=== PATIENT | male | born 1975 | race Caucasian/White ===

== ENCOUNTER 2019-09-08 05:30 | Inpatient (IN) | payer BC ==
[~2019-09-08] VITALS: Ht 177.8 cm; Wt 129.8 kg
[~2019-09-08 05:30] MED LIST: ALPR-155 PO; AMIT75TA PO; BACL20TA PO; BUSP30TA PO; CHOL5000 PO; CITA40TA5 PO; GABA300C10 PO; LEVO5TAB29 PO; LISI40TA PO; MONT10TA9 PO; OMEP40CA42 PO; OXYC-432 PO; ROSU20TA2 PO
[2019-09-08] MEDS ORDERED: BACITRACIN 50,000 UNIT ONE (06:15)
[2019-09-08] MEDS ORDERED: EPINEPHRINE 1 MG/ML, 1ML ONE (06:15)
[2019-09-08] MEDS ORDERED: BUPIVACAINE/PF 0.5% ONE (06:15)
[2019-09-08 06:21] VITALS: BP 133/88
[2019-09-08] MEDS ORDERED: THROMBIN 5,000 UNIT VIAL TP ONE (06:21)
[2019-09-08] MEDS ORDERED: MIDAZOLAM 1 MG/ML, 2ML ONE ×2 (06:22→09:06)
[2019-09-08] MEDS ORDERED: FENTANYL PF 250 MCG/5ML ONE (06:22)
[2019-09-08] MEDS ORDERED: LACTATED RINGERS 1,000 ML IV SCH (06:26)
[2019-09-08] MEDS ORDERED: PHENYLEPHRINE 10 MG/ML ONE (06:27)
[2019-09-08] MEDS ORDERED: GABAPENTIN 300 MG CAPSULE PO ONE (06:30)
[2019-09-08] MEDS ORDERED: ACETAMINOPHEN 500 MG TABLET PO ONE (06:30)
[2019-09-08] MEDS ORDERED: PROPOFOL 100 ML ONE (06:33)
[2019-09-08] MEDS ORDERED: ROCURONIUM 10MG/ML,5ML ONE ×2 (06:58→08:01)
[2019-09-08] MEDS ORDERED: NEOSTIGMINE 1 MG/ML, 10ML ONE (06:58)
[2019-09-08] MEDS ORDERED: CEFAZOLIN 1,000 MG ONE (06:58)
[2019-09-08] MEDS ORDERED: GLYCOPYRROLATE 0.2MG/1ML, 5ML ONE (06:58)
[2019-09-08] MEDS ORDERED: PROPOFOL 10 MG/ML, 20ML ONE (06:58)
[2019-09-08] MEDS ORDERED: MEPERIDINE/PF 25MG/ML,1ML IVPush PRN (07:00)
[2019-09-08] MEDS ORDERED: DIAZEPAM 5 MG/ML, 2ML IVPush PRN (07:00)
[2019-09-08] MEDS ORDERED: LABETALOL 5MG/ML, 20ML IV PRN (07:00)
[2019-09-08] MEDS ORDERED: hydrALAzine 20 MG/ML, 1ML IV PRN (07:00)
[2019-09-08] MEDS ORDERED: ONDANSETRON 2MG/ML, 2ML IV PRN (07:00)
[2019-09-08] MEDS ORDERED: OXYcodone 5 MG/5 ML ORAL.SOL UDC PO PRN (07:00)
[2019-09-08] MEDS ORDERED: MORPHINE SULFATE 4 MG/ML, 1ML IVPush PRN (07:00)
[2019-09-08] MEDS ORDERED: HYDROmorphone 2 MG/ML, 1ML IVPush PRN (07:00)
[2019-09-08] MEDS ORDERED: ALBUTEROL HFA 90 MCG/SPRAY ONE (07:40)
[2019-09-08] MEDS ORDERED: FENTANYL PF 100 MCG/2ML ONE ×2 (08:43→09:06)
[2019-09-08] MEDS ORDERED: HYDROcodone/APAP 5/325 TABLET PO PRN (09:00)
[2019-09-08] MEDS ORDERED: PROMETHAZINE 25 MG/ML, 1ML IM PRN (09:00)
[2019-09-08] MEDS: LISINOPRIL 40 MG TABLET PO SCH ×2 (09:00→20:53)
[2019-09-08] MEDS ORDERED: CYCLOBENZAPRINE 10 MG TABLET PO PRN (09:00)
[2019-09-08] MEDS ORDERED: ONDANSETRON 2MG/ML, 2ML IVPush PRN (09:00)
[2019-09-08] MEDS ORDERED: DIPHENHYDRAMINE 50 MG/ML, 1ML IVPush PRN (09:00)
[2019-09-08] MEDS: GABAPENTIN 300 MG CAPSULE PO SCH ×2 (09:00→20:52)
[2019-09-08] MEDS ORDERED: METHOCARBAMOL 750 MG TABLET PO PRN (09:00)
[2019-09-08] MEDS ORDERED: MAGNESIUM HYDROXIDE 8%, 30ML UDC PO PRN (09:00)
[2019-09-08] MEDS ORDERED: PHARMACY MAY ADJ FOR RENAL FX MC PRN (09:00)
[2019-09-08] MEDS ORDERED: SENNA/DOCUSATE TABLET PO PRN (09:00)
[2019-09-08] MEDS: CHOLECALCIFEROL 5,000u TAB PO SCH (09:00)
[2019-09-08] MEDS ORDERED: BACLOFEN 10 MG TABLET PO PRN (09:00)
[2019-09-08] MEDS ORDERED: METHOCARBAMOL 1,000 MG in DEXTROSE 5% 100 ML IV PRN (09:30)
[2019-09-08] MEDS ORDERED: MIDAZOLAM 1 MG/ML, 5ML IVPush PRN (09:30)
[2019-09-08] MEDS ORDERED: ALBUTEROL SULFATE 2.5 MG/3 ML ONE (09:41)
[2019-09-08] MEDS: FENTANYL PF 100 MCG/2ML IV PRN ×2 (09:42→09:50)
[2019-09-08] MEDS ORDERED: OXYcodone 5 MG/5 ML ORAL.SOL UDC ONE (09:52)
[2019-09-08] MEDS ORDERED: ALBUTEROL SULFATE 2.5 MG/3 ML NPPB PRN (10:00)
[2019-09-08] MEDS ORDERED: morphine SULFATE 10 MG/ML, 1ML ONE (10:00)
[2019-09-08 11:00] VITALS: BP 135/94
[2019-09-08] MEDS: D5%-0.9% NACL+KCL 20MEQ 1,000 ML IV SCH ×2 (12:15→21:55)
[2019-09-08] MEDS: HYDROcodone/APAP 10/325 MG TABLET PO PRN ×2 (12:15→16:31)
[2019-09-08] MEDS: BUSPIRONE 10 MG TABLET PO SCH (12:17)
[2019-09-08] MEDS: SODIUM CHLORIDE FLUSH 10ML SYR IVF SCH ×2 (12:17→21:00)
[2019-09-08] MEDS: morphine SULFATE 10 MG/ML, 1ML IVPush PRN ×2 (14:05→20:03)
[2019-09-08 15:10] VITALS: BP 137/90
[2019-09-08] MEDS: CEFAZOLIN PMX 1GM/50ML 50 ML IVPB SCH ×2 (15:19→23:14)
[2019-09-08 19:47] VITALS: BP 106/72
[2019-09-08] MEDS: MONTELUKAST 10 MG TABLET PO SCH (20:52)
[2019-09-08] MEDS: ATORVASTATIN 80 MG TABLET PO SCH (20:52)
[2019-09-08] MEDS: ALPRazolam 1MG TAB PO PRN (20:52)
[2019-09-08] MEDS: AMITRIPTYLINE 75 MG TABLET PO SCH (20:52)
[2019-09-08] MEDS: OXYcodone/APAP 5/325MG TABLET PO PRN (20:55)
[2019-09-08] MEDS: OMEPRAZOLE 20 MG CAPSULE.DR PO SCH (20:59)
[2019-09-08] MEDS: CITALOPRAM 20 MG TABLET PO SCH (20:59)
[2019-09-09 00:49] VITALS: BP 136/96
[2019-09-09] MEDS: OXYcodone/APAP 5/325MG TABLET PO PRN ×4 (00:57→17:14)
[2019-09-09] MEDS: morphine SULFATE 10 MG/ML, 1ML IVPush PRN (01:03)
[2019-09-09 04:29] VITALS: BP 128/89
[2019-09-09] MEDS ORDERED: ENOXAPARIN 40 MG/0.4 ML SQ SCH (06:00)
[2019-09-09 06:17] LABS: MEAN CORPUSCULAR HEMOGLOBIN 31.9 pg (27.5-34.5); MEAN CORPUSCULAR HGB CONC 33.4 g/dL (33.2-36.2); MEAN CORPUSCULAR VOLUME 95.3 fL (81-97); MEAN PLATELET VOLUME 8.4 fL (7.4-10.4); PLATELET COUNT 219 x10^3/uL (130-400); RED BLOOD COUNT 4.78 x10^6/uL (4.38-5.82); RED CELL DISTRIBUTION WIDTH 13.5 % (9.4-14.8)
[2019-09-09 06:26] LABS: ANION GAP 6 mmol/L (5-15); CALCIUM 8.6 mg/dL (8.5-10.1); CHLORIDE 100 mmol/L (98-107); CREATININE 1.11 mg/dL (0.7-1.3)
[2019-09-09] MEDS: D5%-0.9% NACL+KCL 20MEQ 1,000 ML IV SCH ×3 (06:57→20:00)
[2019-09-09 07:18] LABS: BASOPHILS % (AUTO) 1 % (0-1); EOSINOPHILS # (AUTO) 0.15 x10^3/uL (0-0.4); EOSINOPHILS % (AUTO) 1 % (1-7); LYMPHOCYTES # (AUTO) 2.45 x10^3/uL (1-3.4); LYMPHOCYTES % (AUTO) 17 % (22-44); MD SCAN; MONOCYTES # (AUTO) 2.03 x10^3/uL (0.2-0.8); MONOCYTES % (AUTO) 14 % (2-9); NEUTROPHILS # (AUTO) 9.56 x10^3/uL (1.8-6.8); NEUTROPHILS % (AUTO) 67 % (42-75)
[2019-09-09 07:38] VITALS: BP 129/87
[2019-09-09] MEDS: SODIUM CHLORIDE FLUSH 10ML SYR IVF SCH ×2 (09:10→21:00)
[2019-09-09] MEDS: BUSPIRONE 10 MG TABLET PO SCH (09:11)
[2019-09-09] MEDS: LISINOPRIL 40 MG TABLET PO SCH ×2 (09:12→21:25)
[2019-09-09] MEDS: CETIRIZINE 10 MG TABLET PO SCH (09:12)
[2019-09-09] MEDS: GABAPENTIN 300 MG CAPSULE PO SCH ×2 (09:12→21:25)
[2019-09-09] MEDS: CHOLECALCIFEROL 5,000u TAB PO SCH (09:12)
[2019-09-09] MEDS ORDERED: OXYcodone IR 5MG TABLET PO PRN (13:30)
[2019-09-09 15:35] VITALS: BP 102/71
[2019-09-09] MEDS: ENOXAPARIN 30 MG/0.3 ML SQ SCH (16:00)
[2019-09-09 19:23] VITALS: BP 116/77
[2019-09-09] MEDS: AMITRIPTYLINE 75 MG TABLET PO SCH (21:25)
[2019-09-09] MEDS: MONTELUKAST 10 MG TABLET PO SCH (21:25)
[2019-09-09] MEDS: CITALOPRAM 20 MG TABLET PO SCH (21:26)
[2019-09-09] MEDS: OMEPRAZOLE 20 MG CAPSULE.DR PO SCH (21:26)
[2019-09-09] MEDS: ATORVASTATIN 80 MG TABLET PO SCH (21:26)
[2019-09-10] MEDS: ALPRazolam 1MG TAB PO PRN (00:13)
[2019-09-10] MEDS: OXYcodone/APAP 5/325MG TABLET PO PRN ×4 (01:02→20:54)
[2019-09-10 01:40] VITALS: BP 102/54
[2019-09-10 02:00] VITALS: BP 121/75
[2019-09-10] MEDS: ENOXAPARIN 30 MG/0.3 ML SQ SCH (04:00)
[2019-09-10] MEDS: D5%-0.9% NACL+KCL 20MEQ 1,000 ML IV SCH ×2 (04:00→23:23)
[2019-09-10 05:26] LABS: MEAN CORPUSCULAR HEMOGLOBIN 32.1 pg (27.5-34.5); MEAN CORPUSCULAR HGB CONC 33.1 g/dL (33.2-36.2); MEAN PLATELET VOLUME 8.7 fL (7.4-10.4); PLATELET COUNT 189 x10^3/uL (130-400); RED BLOOD COUNT 4.29 x10^6/uL (4.38-5.82); RED CELL DISTRIBUTION WIDTH 13.7 % (9.4-14.8)
[2019-09-10 05:37] LABS: ANION GAP 6 mmol/L (5-15); CALCIUM 8.8 mg/dL (8.5-10.1); CHLORIDE 98 mmol/L (98-107); CREATININE 1.51 mg/dL (0.7-1.3)
[2019-09-10 06:03] LABS: BASOPHILS # (AUTO) 0.07 x10^3/uL (0-0.1); BASOPHILS % (AUTO) 1 % (0-1); EOSINOPHILS # (AUTO) 0.12 x10^3/uL (0-0.4); EOSINOPHILS % (AUTO) 1 % (1-7); LYMPHOCYTES # (AUTO) 3.05 x10^3/uL (1-3.4); LYMPHOCYTES % (AUTO) 20 % (22-44); MD SCAN; MONOCYTES % (AUTO) 15 % (2-9); NEUTROPHILS # (AUTO) 9.75 x10^3/uL (1.8-6.8); NEUTROPHILS % (AUTO) 64 % (42-75)
[2019-09-10 06:12] VITALS: BP 103/68
[2019-09-10] MEDS ORDERED: EPINEPHRINE 1 MG/ML, 1ML ONE (06:19)
[2019-09-10] MEDS ORDERED: VANCOMYCIN 1,000 MG ONE (06:19)
[2019-09-10] MEDS ORDERED: BUPIVACAINE/PF 0.5% ONE (06:19)
[2019-09-10] MEDS ORDERED: BUPIVACAINE 0.25% ONE (06:19)
[2019-09-10] MEDS ORDERED: BACITRACIN 50,000 UNIT ONE (06:19)
[2019-09-10] MEDS ORDERED: THROMBIN 5,000 UNIT VIAL TP ONE ×2 (06:19→08:01)
[2019-09-10] MEDS ORDERED: MIDAZOLAM 1 MG/ML, 2ML ONE (06:37)
[2019-09-10] MEDS ORDERED: FENTANYL PF 250 MCG/5ML ONE (06:38)
[2019-09-10] MEDS ORDERED: DEXMEDETOMIDINE 200 MCG/2 ML ONE (06:46)
[2019-09-10] MEDS ORDERED: METOPROLOL 1 MG/ML, 5ML ONE (06:47)
[2019-09-10] MEDS ORDERED: PROPOFOL 50 ML ONE ×2 (07:25→08:20)
[2019-09-10] MEDS ORDERED: BACITRACIN 50,000 UNIT IRRIG ONE (07:59)
[2019-09-10] MEDS ORDERED: hydrALAzine 20 MG/ML, 1ML IV PRN (08:00)
[2019-09-10] MEDS ORDERED: HYDROmorphone 2 MG/ML, 1ML IVPush PRN (08:00)
[2019-09-10] MEDS ORDERED: OXYcodone 5 MG/5 ML ORAL.SOL UDC PO PRN (08:00)
[2019-09-10] MEDS ORDERED: MEPERIDINE/PF 25MG/ML,1ML IVPush PRN (08:00)
[2019-09-10] MEDS ORDERED: FENTANYL PF 100 MCG/2ML IV PRN (08:00)
[2019-09-10] MEDS ORDERED: BUPIVACAINE/PF 0.5% INFIL ONE (08:00)
[2019-09-10] MEDS ORDERED: ACETAMINOPHEN 325 MG TABLET PO PRN (08:00)
[2019-09-10] MEDS ORDERED: PROMETHAZINE 25 MG/ML, 1ML IV PRN (08:00)
[2019-09-10] MEDS ORDERED: ALBUTEROL/IPRATROPIUM 2.5MG/0.5MG, 3 ML NPPB PRN (08:00)
[2019-09-10] MEDS ORDERED: VANCOMYCIN 1,000 MG IM ONE (08:01)
[2019-09-10] MEDS: GABAPENTIN 300 MG CAPSULE PO SCH ×2 (09:00→20:54)
[2019-09-10] MEDS: CETIRIZINE 10 MG TABLET PO SCH (09:00)
[2019-09-10] MEDS: SODIUM CHLORIDE FLUSH 10ML SYR IVF SCH ×2 (09:00→21:00)
[2019-09-10] MEDS: BUSPIRONE 10 MG TABLET PO SCH (09:00)
[2019-09-10] MEDS: CHOLECALCIFEROL 5,000u TAB PO SCH (09:00)
[2019-09-10] MEDS: LISINOPRIL 40 MG TABLET PO SCH ×2 (09:00→20:55)
[2019-09-10] MEDS ORDERED: PHENYLEPHRINE 10 MG/ML ONE (09:03)
[2019-09-10] MEDS ORDERED: PROPOFOL 10 MG/ML, 20ML ONE (09:03)
[2019-09-10] MEDS ORDERED: NEOSTIGMINE 1 MG/ML, 10ML ONE (09:04)
[2019-09-10] MEDS ORDERED: MEPERIDINE/PF 100 MG/ML ONE (09:04)
[2019-09-10 13:00] VITALS: BP 112/79
[2019-09-10] MEDS: CEFAZOLIN PMX 1GM/50ML 50 ML IV SCH ×2 (16:14→23:23)
[2019-09-10] MEDS ORDERED: ONDANSETRON 2MG/ML, 2ML ONE (16:49)
[2019-09-10] MEDS ORDERED: DEXAMETHASONE 4 MG/ML, 1ML ONE (16:49)
[2019-09-10] MEDS ORDERED: SUCCINYLCHOLINE 20 MG/ML, 10ML ONE (16:49)
[2019-09-10 19:32] VITALS: BP 134/80
[2019-09-10] MEDS: AMITRIPTYLINE 75 MG TABLET PO SCH (20:54)
[2019-09-10] MEDS: MONTELUKAST 10 MG TABLET PO SCH (20:54)
[2019-09-10] MEDS: CITALOPRAM 20 MG TABLET PO SCH (20:54)
[2019-09-10] MEDS: METHOCARBAMOL 750 MG TABLET PO SCH (20:55)
[2019-09-10] MEDS: ATORVASTATIN 80 MG TABLET PO SCH (20:55)
[2019-09-10] MEDS: OMEPRAZOLE 20 MG CAPSULE.DR PO SCH (20:55)
[2019-09-11 00:53] VITALS: BP 112/75
[2019-09-11] MEDS: OXYcodone/APAP 5/325MG TABLET PO PRN ×5 (01:46→21:59)
[2019-09-11] MEDS: METHOCARBAMOL 750 MG TABLET PO SCH ×4 (01:46→21:24)
[2019-09-11 04:16] VITALS: BP 129/84
[2019-09-11 05:35] LABS: MEAN CORPUSCULAR HEMOGLOBIN 31.9 pg (27.5-34.5); MEAN CORPUSCULAR HGB CONC 32.9 g/dL (33.2-36.2); MEAN PLATELET VOLUME 9.2 fL (7.4-10.4); PLATELET COUNT 189 x10^3/uL (130-400); RED BLOOD COUNT 3.94 x10^6/uL (4.38-5.82)
[2019-09-11 05:42] LABS: ANION GAP 7 mmol/L (5-15); CALCIUM 8.8 mg/dL (8.5-10.1); CHLORIDE 104 mmol/L (98-107); CREATININE 1.37 mg/dL (0.7-1.3)
[2019-09-11 05:57] LABS: MD YES
[2019-09-11 05:58] LABS: BAND#(MANUAL) 1.17 x10^3/uL; BANDS%(MANUAL) 5 % (0-7); LYMPH#(MANUAL) 1.87 x10^3/uL (1-3.4); LYMPHS% (MANUAL) 8 % (22-44); MONOS#(MANUAL) 3.04 x10^3/uL (0.3-2.7); MONOS% (MANUAL) 13 % (2-9); SEG#(MANUAL) 17.32 x10^3/uL (1.8-6.8); SEGS% (MANUAL) 74 % (42-75)
[2019-09-11 05:59] LABS: <PLATELET ESTIMATE> ADEQUATE; <PLT MORPHOLOGY> NORMAL PLT MORPH; <RBC MORPHOLOGY> NORMAL
[2019-09-11] MEDS: ENOXAPARIN 30 MG/0.3 ML SQ SCH ×2 (06:34→18:01)
[2019-09-11] MEDS: CEFAZOLIN PMX 1GM/50ML 50 ML IV SCH ×3 (06:34→22:40)
[2019-09-11] MEDS: D5%-0.9% NACL+KCL 20MEQ 1,000 ML IV SCH ×2 (06:46→17:00)
[2019-09-11 07:17] VITALS: BP 145/76
[2019-09-11] MEDS ORDERED: LACTATED RINGERS 500 ML IV ONE (08:30)
[2019-09-11] MEDS: CETIRIZINE 10 MG TABLET PO SCH (08:52)
[2019-09-11] MEDS: LISINOPRIL 40 MG TABLET PO SCH ×2 (08:52→21:24)
[2019-09-11] MEDS: CHOLECALCIFEROL 5,000u TAB PO SCH (08:52)
[2019-09-11] MEDS: BUSPIRONE 10 MG TABLET PO SCH (08:52)
[2019-09-11] MEDS: GABAPENTIN 300 MG CAPSULE PO SCH ×2 (08:52→21:24)
[2019-09-11] MEDS: SODIUM CHLORIDE FLUSH 10ML SYR IVF SCH ×2 (09:00→21:00)
[2019-09-11] MEDS: ALPRazolam 1MG TAB PO PRN ×2 (11:23→21:24)
[2019-09-11 13:30] VITALS: BP 101/56
[2019-09-11 19:34] VITALS: BP 126/81
[2019-09-11] MEDS: OMEPRAZOLE 20 MG CAPSULE.DR PO SCH (21:24)
[2019-09-11] MEDS: AMITRIPTYLINE 75 MG TABLET PO SCH (21:24)
[2019-09-11] MEDS: ATORVASTATIN 80 MG TABLET PO SCH (21:24)
[2019-09-11] MEDS: MONTELUKAST 10 MG TABLET PO SCH (21:24)
[2019-09-11] MEDS: CITALOPRAM 20 MG TABLET PO SCH (21:24)
[2019-09-12 01:23] VITALS: BP 122/80
[2019-09-12] MEDS: D5%-0.9% NACL+KCL 20MEQ 1,000 ML IV SCH (02:59)
[2019-09-12] MEDS: METHOCARBAMOL 750 MG TABLET PO SCH ×2 (03:16→09:02)
[2019-09-12] MEDS: OXYcodone/APAP 5/325MG TABLET PO PRN ×2 (03:17→09:03)
[2019-09-12 05:07] LABS: MEAN CORPUSCULAR HEMOGLOBIN 31.6 pg (27.5-34.5); MEAN CORPUSCULAR HGB CONC 32.8 g/dL (33.2-36.2); MEAN CORPUSCULAR VOLUME 96.4 fL (81-97); MEAN PLATELET VOLUME 8.7 fL (7.4-10.4); PLATELET COUNT 239 x10^3/uL (130-400); RED BLOOD COUNT 3.94 x10^6/uL (4.38-5.82); RED CELL DISTRIBUTION WIDTH 13.4 % (9.4-14.8)
[2019-09-12 05:12] LABS: ANION GAP 5 mmol/L (5-15); CALCIUM 8.6 mg/dL (8.5-10.1); CHLORIDE 105 mmol/L (98-107)
[2019-09-12 06:11] LABS: BASOPHILS % (AUTO) 0 % (0-1); EOSINOPHILS # (AUTO) 0.08 x10^3/uL (0-0.4); EOSINOPHILS % (AUTO) 1 % (1-7); LYMPHOCYTES # (AUTO) 2.12 x10^3/uL (1-3.4); LYMPHOCYTES % (AUTO) 12 % (22-44); MD SCAN; MONOCYTES # (AUTO) 1.29 x10^3/uL (0.2-0.8); MONOCYTES % (AUTO) 7 % (2-9); NEUTROPHILS # (AUTO) 14.04 x10^3/uL (1.8-6.8); NEUTROPHILS % (AUTO) 80 % (42-75)
[2019-09-12] MEDS: ENOXAPARIN 30 MG/0.3 ML SQ SCH (06:34)
[2019-09-12] MEDS: CEFAZOLIN PMX 1GM/50ML 50 ML IV SCH (06:34)
[2019-09-12 07:21] VITALS: BP 115/81
[2019-09-12] MEDS ORDERED: MAGNESIUM CITRATE 300ML ORAL SOL PO ONE (09:00)
[2019-09-12] MEDS: BUSPIRONE 10 MG TABLET PO SCH (09:02)
[2019-09-12] MEDS: SODIUM CHLORIDE FLUSH 10ML SYR IVF SCH (09:02)
[2019-09-12] MEDS: CETIRIZINE 10 MG TABLET PO SCH (09:02)
[2019-09-12] MEDS: GABAPENTIN 300 MG CAPSULE PO SCH (09:03)
[2019-09-12] MEDS: LISINOPRIL 40 MG TABLET PO SCH (09:03)
[2019-09-12] MEDS: CHOLECALCIFEROL 5,000u TAB PO SCH (09:03)
[2019-09-12] MEDS: ALPRazolam 1MG TAB PO PRN (09:45)
[2019-09-12] MEDS ORDERED: OXYC-307 PO (09:59)
[2019-09-12] MEDS ORDERED: METH750T87 PO (10:01)
[2019-09-12] MEDS ORDERED: DOXY100T23 PO (10:02)
[2019-09-12 11:24] VITALS: BP 132/84
== END 2019-09-12 12:05 | disposition home or self-care (01) | DRG 460 ==
LOC: ORIP 05:30 → 4NE 10:52 → DCLOUNGE 09-12 11:55
PROVIDERS: ADMIT Neurological Surgery; ATTEND Neurological Surgery
PROC: 0SB40ZZ Excision of Lumbosacral Disc, Open Approach (ICD-10-PCS; 2019-09-10)
PROC: 01NB0ZZ Release Lumbar Nerve, Open Approach (ICD-10-PCS; 2019-09-10)
PROC: 4A11X4G Monitoring of Peripheral Nervous Electrical Activity, Intraoperative, External Approach (ICD-10-PCS; 2019-09-10)
PROC: 0SG30A0 Fusion of Lumbosacral Joint with Interbody Fusion Device, Anterior Approach, Anterior Column, Open Approach (ICD-10-PCS; principal; 2019-09-10 07:00)
DX: M51.17 Intervertebral disc disorders with radiculopathy, lumbosacral region (principal); Z68.41 Body mass index [BMI] 40.0-44.9, adult; M43.17 Spondylolisthesis, lumbosacral region; E66.01 Morbid (severe) obesity due to excess calories; F43.10 Post-traumatic stress disorder, unspecified; G89.4 Chronic pain syndrome; I10 Essential (primary) hypertension; M48.07 Spinal stenosis, lumbosacral region; N40.0 Benign prostatic hyperplasia without lower urinary tract symptoms; N50.812 Left testicular pain; J45.909 Unspecified asthma, uncomplicated; K21.9 Gastro-esophageal reflux disease without esophagitis; E78.5 Hyperlipidemia, unspecified; F32.9 Major depressive disorder, single episode, unspecified; Z79.899 Other long term (current) drug therapy; Z88.0 Allergy status to penicillin
CPT/HCPCS: 36415; 72100; 72131; 74018; 80048; 85025; 94640; 95938; 95941; 97161; 97162; 97166; 97168; C1713; C1763; J0171; J0330; J0690; J1100; J1650; J2175; J2250; J2270; J2370; J2405; J2704; J2710; J2800; J3010; J3370; J3480; J7120; J7613; S0020; G0378; J3490